=== PATIENT | male | born 1940 | race Caucasian/White ===

== ENCOUNTER 2017-06-03 11:31 | Day surgery (SDC) | payer MEDICARE, OTHER ==
[~2017-06-03] VITALS: Ht 180.3 cm; Wt 82.5 kg
--- NOTE | ~2017-06-03 | EGD ---
EGD REPORT [facility] [address] [place] [address] NAME: LEBRON MEJÍA : 36 STATUS : REG [facility]#: [id number] AGE: 77 ADM/REG DATE : 06/03/17 MR#: [id number] REPORT SERV DATE: 06/03/17 DICTATED BY: SHASTA STEPHENS DATE: 06/03/17 REPORT STATUS : Draft TRANSCRIBED BY: [facility] DATE: 06/03/17 Endoscopy Center Patient Name: Lebron Mejaí Date of : 1940 Attending MD: SHASTA STEPHENS MD Procedure Date No Time: 06/03/2017 Procedure: Upper GI endoscopy Indications: Dysphagia Referring MD: Rashad Robbins Medicines: Monitored Anesthesia Care Complications: No immediate complications. Procedure: After obtaining informed consent, the endoscope was passed under direct vision. Throughout the procedure, the patient's blood pressure, pulse, and oxygen saturations were monitored continuously. The GIF [id number] was introduced through the mouth, and advanced to the second part of duodenum. The upper GI endoscopy was accomplished without difficulty. The patient tolerated the procedure well. Findings: No endoscopic abnormality was evident in the esophagus to explain the patient's complaint of dysphagia. Area was successfully injected with 100 units botulinum toxin. Localized mildly erythematous mucosa without bleeding was found in the gastric antrum. Biopsies were taken with a cold forceps for histology. The cardia and gastric fundus were normal on retroflexion. Few non-bleeding superficial duodenal ulcers with no stigmata of bleeding were found in the first part of the duodenum and in the second part of the duodenum. The largest lesion was 7 mm in largest dimension. Biopsies were taken with a cold forceps for histology. Impression: - No endoscopic esophageal abnormality to explain patient's dysphagia. Injected with botulinum toxin. - Erythematous mucosa in the antrum. Biopsied. - Multiple duodenal ulcers with clean base. Biopsied. Recommendation: - Patient has a contact number available for emergencies. The signs and symptoms of potential delayed complications were discussed with the patient. Return to normal activities tomorrow. Written discharge instructions were provided to the patient. - Soft diet. - Await pathology results. - Repeat the upper endoscopy PRN for retreatment. EGD REPORT [address] [address] NAME: LEBRON MEJÍA : 36 STATUS : REG [facility] [place] PAT#: [id number] AGE: 77 ADM/REG DATE : 06/03/17 MR#: [id number] REPORT SERV DATE: 06/03/17 DICTATED BY: SHASTA STEPHENS DATE: 06/03/17 REPORT STATUS : Draft TRANSCRIBED BY: [employer] DATE: 06/03/17 Procedure Code(s): --- Professional --- 43774, Esophagogastroduodenoscopy, flexible, transoral; with biopsy, single or multiple Diagnosis Code(s): --- Professional --- R13.10, Dysphagia, unspecified K31.9, Disease of stomach and duodenum, unspecified K26.9, Duodenal ulcer, unspecified as acute or chronic, without hemorrhage or perforation CPT copyright 2013 [employer]. All rights reserved. The codes documented in this report are preliminary and upon secondary school special ed teacher review may be revised to meet current compliance requirements. SHASTA STEPHENS MD 06/03/2017 1:46 PM This report has been signed electronically. Number of Addenda: 0 Note Initiated On: 06/03/2017 1:17 PM Scope Withdrawal Time 0 hours 0 minutes 0 seconds [id number] [place] [id number]
[~2017-06-03 11:31] MED LIST: CLARIT10 PO; FLONASE NAS; GLUCPH PO; HCTZ25B PO; HYDROCHLOROT25 MG PO; HYT5 PO; LISINOPRIL40 MG PO; PRAZOSIN HCL5 MG OR; PROSCAR5 PO
== END 2017-06-03 23:59 | disposition home or self-care (01) ==
LOC: DMU 11:31
PROVIDERS: Internal Medicine Gastroenterology
PROC: 0DB98ZX Excision of Duodenum, Via Natural or Artificial Opening Endoscopic, Diagnostic (ICD-10-PCS; principal; 2017-06-03 13:30)
PROC: 0DB68ZX Excision of Stomach, Via Natural or Artificial Opening Endoscopic, Diagnostic (ICD-10-PCS; 2017-06-03 13:30)
PROC: 3E0G8GC Introduction of Other Therapeutic Substance into Upper GI, Via Natural or Artificial Opening Endoscopic (ICD-10-PCS; 2017-06-03 13:30)
DX: K29.80 Duodenitis without bleeding (principal); K29.50 Unspecified chronic gastritis without bleeding; K31.89 Other diseases of stomach and duodenum; K22.0 Achalasia of cardia; K21.9 Gastro-esophageal reflux disease without esophagitis; I10 Essential (primary) hypertension; E11.9 Type 2 diabetes mellitus without complications; N40.0 Benign prostatic hyperplasia without lower urinary tract symptoms; Z87.891 Personal history of nicotine dependence; Z88.0 Allergy status to penicillin; Z79.84 Long term (current) use of oral hypoglycemic drugs; Z79.899 Other long term (current) drug therapy; Z98.890 Other specified postprocedural states
CPT/HCPCS: 82962; 88305; J0585